=== PATIENT | female | born 1990 | race Caucasian/White ===

== ENCOUNTER 2016-05-13 10:10 | Inpatient (IN) | payer OTHER ==
[2016-05-14] MEDS ORDERED: IV START KIT ONE (07:36)
[2016-05-14] MEDS ORDERED: OXYTOCIN 10 UNITS/ML VIAL ONE (07:36)
[2016-05-14] MEDS ORDERED: SODIUM CHLORIDE 0.9% FLUSH 10 ML ONE ×2 (07:36→08:05)
[2016-05-14] MEDS ORDERED: LIDOCAINE Viscous 2% 15 ML UDCUP ONE (07:36)
[2016-05-14] MEDS ORDERED: LIDOCAINE 1% (PRES FREE) 30 ML VIAL ONE (07:36)
[2016-05-14] MEDS ORDERED: PUMP TUBING ONE (07:36)
[2016-05-14] MEDS ORDERED: MINERAL OIL 25 ML BOT ONE (07:36)
[2016-05-14] MEDS ORDERED: OXYTOCIN IN LR 500 ML IV ONE ×2 (07:37→09:32)
[2016-05-14 09:08] VITALS: BMI 38.2
[2016-05-14] MEDS: MISOPROSTOL 25 MCG TABLET VG SCH ×2 (09:30→16:35)
[2016-05-14] MEDS: CALCIUM CARBONATE 500 MG TAB.CHEW PO SCH ×3 (10:23→18:25)
[2016-05-14 11:12] LABS: HEMATOCRIT 40.4 % (37.0-47.0); HEMOGLOBIN 13.5 gm/l (12.0-16.0); MEAN CELL VOLUME 93.7 fl (81.0-99.0); MEAN CORPUSCULAR HEMOGLOBIN 31.3 pg (27.0-31.0); MEAN CORPUSCULAR HGB CONC 33.4 g/dl (33.0-37.0)
--- NOTE | 2016-05-14 15:25 | PCMAN ---
OB Admission Note - History : 0 Term: 0 : 0 Abortions (S&E): 0 Livin Gestational Age (weeks): 40 Days (#/7): 1 Admit Cervical Dilation:: 1.5 Admit Cervical Effacement (%):: 50 Admit Station:: -2 Admit Presentaton:: cephalic Membrane Status: Intact Contractions: Yes Contraction Frequency:: 2-4 Heart Rate:: 140 Status:: ctegory 1 - Labs Blood Type: O (+) positive
[2016-05-14] MEDS ORDERED: ONDANSETRON 4 MG/2ML 2 ML VIAL IV PRN (20:18)
[2016-05-14] MEDS ORDERED: LIDOCAINE 1% (PRES FREE) 30 ML VIAL IF ONE (22:21)
[2016-05-14] MEDS ORDERED: MINERAL OIL 25 ML BOT PO ONE (22:21)
--- NOTE | 2016-05-14 22:36 | PCMDEL ---
Delivery Note - Delivery Delivery (Date): 05/14/16 Gender: Male Presentation: Cephalic Position: OA Umbilical Cord: 3 Vessel Delayed Cord Clamping:: 2-3 min Placenta:: spontaneous and complete EBL:: 300 ml Perineum:: 2nd degree midline tear Suture:: repaired with 2-0 chromic Anesthesia/Meds:: local
[2016-05-14] MEDS ORDERED: MEASLES,MUMPS&RUBELLA VACCINE 0.5 ML VIAL SUB-Q V ONE (23:08)
[2016-05-14] MEDS ORDERED: LANOLIN 50 APPLIC/7G TUBE TP PRN (23:08)
[2016-05-14] MEDS ORDERED: DIPHTH,PERTUSS(ACELL),TET VAC 0.5 ML VIAL IM V ONE (23:08)
[2016-05-14] MEDS ORDERED: MAGNESIUM HYDROXIDE 30 ML UDCUP PO PRN (23:08)
[2016-05-14] MEDS ORDERED: BENZOCAINE/MENTHOL 60 APPLIC/BOT TP PRN (23:08)
[2016-05-14] MEDS ORDERED: CALCIUM CARBONATE 500 MG TAB.CHEW PO PRN (23:08)
[2016-05-14] MEDS: IBUPROFEN 800 MG TABLET PO PRN (23:25)
[2016-05-15] MEDS: HYDROCODONE/ACETAMINOPHEN 5/325MG TABLET PO PRN ×2 (05:00→12:56)
[2016-05-15 06:57] LABS: HEMATOCRIT 37.6 % (37.0-47.0); HEMOGLOBIN 12.8 gm/l (12.0-16.0)
[2016-05-15] MEDS: IBUPROFEN 800 MG TABLET PO PRN ×2 (08:45→14:48)
[2016-05-15] MEDS: DOCUSATE SODIUM 100 MG CAPSULE PO SCH (08:45)
--- NOTE | 2016-05-15 10:29 | PDOC44 ---
- Subjective Day: 1 Reports Pain Tolerable, Reports , Reports Lochia Light, Reports Tolerating Regular Diet - Objective Temp Pulse Resp BP Pulse Ox 98.2 F 90 16 120/70 05/15/16 07:35 05/15/16 07:35 05/15/16 07:35 05/15/16 07:35 Lab Results 05/15/16 05/14/16 06:15 09:00 WBC 10.7 H RBC 4.31 Hgb 12.8 13.5 Hct 37.6 40.4 Plt Count 286 05/14/16 09:00 MCH 31.3 H Current Medications Generic Name Dose Route Start Last Admin Trade Name Freq PRN Reason Stop Dose Admin Acetaminophen/Hydrocodone Bitart 1 - 2 tab 05/14/16 23:08 05/15/16 05:00 [place] 5/325 PO 1 tab Q4H PRN Administration Pain (Moderate) Benzocaine/Menthol 1 applic 05/14/16 23:08 Dermoplast TP PRN PRN Patient Comfort Calcium Carbonate/Glycine 500 - 1,000 mg 05/14/16 23:08 05/15/16 07:42 Tums PO 500 mg BID PRN Administration Indigestion Docusate Sodium 100 mg 05/15/16 09:00 05/15/16 08:45 Colace PO 100 mg DAILY MASOOD Administration Emollient Ointment 1 applic 05/14/16 23:08 [id number] TP PRN PRN sore nipples Ibuprofen 800 mg 05/14/16 23:08 05/15/16 08:45 Motrin PO 800 mg Q6H PRN Administration Pain (Mild) Magnesium Hydroxide 30 ml 05/14/16 23:08 Milk Of Magnesia PO BEDTIME PRN Constipation Sodium Chloride 10 ml 05/14/16 23:08 05/13/16 23:15 Normal Saline 10ml Flush IV 10 ml PRN PRN Administration IV Flush - Physical Exam General: Afebrile Psych/Mental Status: Mood/Affect Appropriate Breast: Soft Fundus: Firm Abdomen: Normal Bowel Sounds Genitourinary: Normal Female Genitalia Disposition: Stable, Anticipate DC Home Tomorrow
[2016-05-16] MEDS: IBUPROFEN 800 MG TABLET PO PRN (00:38)
[2016-05-16 08:31] VITALS: BP 113/69
--- NOTE | 2016-05-16 09:00 | PDOC44 ---
- Subjective Reports Pain Tolerable, Reports , Reports Lochia Light, Reports Tolerating Regular Diet - Objective Temp Pulse Resp BP Pulse Ox 97.6 F 83 16 113/69 05/16/16 07:45 05/16/16 07:45 05/16/16 07:45 05/16/16 07:45 Current Medications Generic Name Dose Route Start Last Admin Trade Name Freq PRN Reason Stop Dose Admin Acetaminophen/Hydrocodone Bitart 1 - 2 tab 05/14/16 23:08 05/15/16 12:56 [place] 5/325 PO 1 tab Q4H PRN Administration Pain (Moderate) Benzocaine/Menthol 1 applic 05/14/16 23:08 Dermoplast TP PRN PRN Patient Comfort Calcium Carbonate/Glycine 500 - 1,000 mg 05/14/16 23:08 05/15/16 07:42 Tums PO 500 mg BID PRN Administration Indigestion Docusate Sodium 100 mg 05/15/16 09:00 05/15/16 08:45 Colace PO 100 mg DAILY MASOOD Administration Emollient Ointment 1 applic 05/14/16 23:08 05/16/16 00:43 [id number] TP 1 tube PRN PRN Administration sore nipples Ibuprofen 800 mg 05/14/16 23:08 05/16/16 00:38 Motrin PO 800 mg Q6H PRN Administration Pain (Mild) Magnesium Hydroxide 30 ml 05/14/16 23:08 Milk Of Magnesia PO BEDTIME PRN Constipation - Physical Exam General: Afebrile Psych/Mental Status: Mood/Affect Appropriate Breast: Soft Fundus: Firm Abdomen: Normal Bowel Sounds Genitourinary: Normal Female Genitalia Disposition: Stable, Anticipate DC to Home
[2016-05-16] MEDS: DOCUSATE SODIUM 100 MG CAPSULE PO SCH (12:01)
== END 2016-05-16 12:40 | disposition home or self-care (01) | DRG 775 ==
LOC: EDSTATUS 14:04 → FBC 05-14 07:09
PROVIDERS: ADMIT Obstetrics & Gynecology; ATTEND Obstetrics & Gynecology
PROC: 0KQM0ZZ Repair Perineum Muscle, Open Approach (ICD-10-PCS; principal; 2016-05-14)
PROC: 10E0XZZ Delivery of Products of Conception, External Approach (ICD-10-PCS; 2016-05-14)
DX: O70.1 Second degree perineal laceration during delivery (principal); Z37.0 Single live birth; Z3A.40 40 weeks gestation of pregnancy